=== PATIENT | male | born 1985 | race Caucasian/White ===

== ENCOUNTER → 2021-10-19 13:06 | Outpatient (CLI) | payer OTHER, SELFPAY ==
[2021-10-19 13:39] LABS: Add Manual Diff / Slide Review NO; Basophils Absolute Auto 0 /uL (0-100); Basophils Percent Auto 0.3 % (0-2); Eosinophils Absolute Auto 100 /uL (0-450); Eosinophils Percent Auto 1.9 % (2-4); Hematocrit 41.7 % (41-53); Hemoglobin 13.8 g/dL (13.5-17.5); Lymphocytes Absolute Auto 1700 /uL (1100-4500); Lymphocytes Percent Auto 27.9 % (25-40); Mean Corpuscular Hemoglobin 31.1 PG (26-34); Mean Corpuscular Volume 94.1 fL (80-100); Monocytes Absolute Auto 400 /uL (0-900); Monocytes Percent Auto 6.5 % (3-14); Neutrophils Absolute Auto 3900 /uL (1500-7000); Neutrophils Percent Auto 63.4 % (50-75); Platelet Count 327 X10^3/uL (150-400); Red Blood Cell Count 4.43 X10^6/uL (4.5-5.9); Red Cell Distribution Width 13.1 % (11.6-14.8); White Blood Cell Count 6.1 X10^3/uL (4.5-11.0)
[2021-10-19 13:59] LABS: Albumin 4.9 g/dL (3.5-5.0); BUN Creatinine Ratio 32.4 (6-22); Blood Urea Nitrogen 33 mg/dL (9-20); Calcium 9.4 mg/dL (8.4-10.2); Carbon Dioxide 33 mmol/L (22-32); Chloride 100 mmol/L (98-107); Estimated Glomerular Filt Rate > 60 mL/min (>60); Glucose 105 mg/dL (70-100); HEMOLYSIS < 15 (0-50); Phosphorous 3.9 mg/dL (2.5-4.5); Sodium 140 mmol/L (137-145)
[2021-10-19 14:15] LABS: Free T4, Direct Thyroxine 1.09 ng/dL (0.78-2.19)
[2021-10-19 14:29] LABS: Thyroid Stimulating Hormone 2.06 uIU/mL (0.47-4.68)
[2021-10-20 08:09] LABS: Adrenocorticotropic Hormone 50.7 pg/mL (7.2-63.3)
[2021-10-20 14:24] LABS: Cortisol Random 9.37 ug/dL
== END ==
PROVIDERS: Referring Provider Physician Assistant Medical; Visit Provider Physician Assistant Medical
DX: C43.59 Malignant melanoma of other part of trunk (principal)
CPT/HCPCS: 36415; 80069; 82024; 82533; 84439; 84443; 85025